=== PATIENT | female | born 1950 | race Caucasian/White ===

== ENCOUNTER → 2017-02-14 | Outpatient (CLI) | payer MEDICARE, OTHER | LOC: COL.RAD 08:15 | DX: S46.812A Strain of other muscles, fascia and tendons at shoulder and upper arm level, left arm, initial encounter (principal); M75.82 Other shoulder lesions, left shoulder; M21.822 Other specified acquired deformities of left upper arm; M75.22 Bicipital tendinitis, left shoulder ==

== ENCOUNTER 2017-07-06 21:06 | Observation (INO) | payer MEDICARE, OTHER ==
[~2017-07-06] VITALS: Ht 154.9 cm; Wt 70.4 kg
[2017-07-06] MEDS ORDERED: TYLENOL W/COD1 UDTAB PO (21:34)
[2017-07-06] MEDS ORDERED: OXAYDO7.5 MG PO (21:35)
[2017-07-06 22:34] LABS: BASO % 0.3 % (0.0-2.0); EOS # 0.1 (0.0-0.7); EOS % 0.5 % (0-4.0); GRAN # 7.1 (1.4-6.5); GRAN % 68.6 % (42.2-75.2); HEMATOCRIT 41.5 % (37.0-47.0); HEMOGLOBIN 13.5 g/dl (12.5-16.0); LYMPH # 2.6 (1.2-3.4); LYMPH % 24.9 % (20.0-51.0); MEAN CELL VOLUME 95 fl (80.0-100.0); MEAN CORPUSCULAR HEMOGLOBIN 31 pg (27.0-31.0); MEAN CORPUSCULAR HGB CONC 33 g/dl (33.0-37.0); MEAN PLATELET VOLUME 10.3 fl (7.4-10.4); MONO # 0.6 (0.1-0.6); MONO % 5.4 % (1.7-9.3); PLATELET COUNT 213 K/mm3 (130-400); RED BLOOD COUNT 4.35 M/mm3 (4.10-5.30); REDCELL DISTRIBUTION WIDTH-CV 12.5 % (11.5-14.5)
[2017-07-06 22:40] VITALS: BP 146/86; PULSE 75
[2017-07-06 22:41] LABS: PROTHROMBIN TIME 11.3 SECONDS (9.7-12.8)
[2017-07-06 22:46] LABS: ALANINE AMINOTRANSFERASE 27 U/L (9-52); ALBUMIN 4.2 gm/dL (3.5-5.0); ALKALINE PHOSPHATASE 93 U/L (50-136); ANION GAP 9 mmol/L (7-16); AST,SGOT 21 U/L (15-37); BILIRUBIN,TOTAL 0.5 mg/dL (0.0-1.0); BLOOD UREA NITROGEN 22 mg/dL (7-17); CALCIUM 8.9 mg/dL (8.4-10.2); CARBON DIOXIDE 26 mmol/L (22-30); CHLORIDE 105 mmol/L (98-107); CREATININE, serum 0.81 mg/dL (0.52-1.25); D-DIMER < 200.00 ng/mLDDu (200-230); GLUCOSE 128 mg/dL (74-106); POTASSIUM 3.8 mmol/L (3.4-5.0); SODIUM 140 mmol/L (137-145); TOTAL PROTEIN 7.1 gm/dL (6.4-8.2)
[2017-07-06 22:57] LABS: TROPONIN-I < 0.012 ng/mL (0.000-0.034)
[2017-07-07 02:46] LABS: COLLECTION METHOD CLEAN CATCH
[2017-07-07 02:52] LABS: CHOLESTEROL RISK RATIO 2.8
[2017-07-07 03:09] LABS: MUCOUS Present /lpf; PH 7 (5-8); SQUAMOUS EPITHELIAL 0-2 /hpf; URINE APPEARANCE Hazy; URINE BACTERIA Rare /hpf; URINE BILIRUBIN Negative (NEGATIVE); URINE BLOOD Negative (NEGATIVE); URINE COLOR Yellow; URINE GLUCOSE Negative (NEGATIVE); URINE KETONE Negative (NEGATIVE); URINE LEUKOCYTE ESTERASE Negative (NEGATIVE); URINE NITRATE Negative (NEGATIVE); URINE PROTEIN(semi-quant) Negative (NEGATIVE); URINE RBC 0-2 /hpf
[2017-07-07 03:23] LABS: TSH w REFLEX 0.818 uIU/mL (0.465-4.680)
[2017-07-07] MEDS ORDERED: TYLENOL W/COD1 UDTAB PO (03:43)
[2017-07-07 04:18] VITALS: BP 139/76; PULSE 65; TEMP 97.4
[2017-07-07 06:36] VITALS: BP 139/78; PULSE 70; TEMP 97.4
[2017-07-07 06:36] LABS: BASO % 0.3 % (0.0-2.0); EOS % 0.5 % (0-4.0); GRAN # 3.1 (1.4-6.5); GRAN % 53.2 % (42.2-75.2); HEMATOCRIT 38.8 % (37.0-47.0); HEMOGLOBIN 12.7 g/dl (12.5-16.0); LYMPH # 2.2 (1.2-3.4); LYMPH % 37.9 % (20.0-51.0); MEAN CELL VOLUME 94 fl (80.0-100.0); MEAN CORPUSCULAR HEMOGLOBIN 31 pg (27.0-31.0); MEAN CORPUSCULAR HGB CONC 33 g/dl (33.0-37.0); MEAN PLATELET VOLUME 10.7 fl (7.4-10.4); MONO # 0.5 (0.1-0.6); MONO % 7.9 % (1.7-9.3); PLATELET COUNT 200 K/mm3 (130-400); RED BLOOD COUNT 4.14 M/mm3 (4.10-5.30); REDCELL DISTRIBUTION WIDTH-CV 12.5 % (11.5-14.5)
[2017-07-07 06:48] LABS: CALCIUM 8.8 mg/dL (8.4-10.2); CREATININE, serum 0.6 mg/dL (0.52-1.25); POTASSIUM 3.6 mmol/L (3.4-5.0)
[2017-07-07 08:21] VITALS: BP 126/42; BP 142/85; PULSE 120; PULSE 70; PULSE 76; TEMP 97.6; TEMP 97.9
[2017-07-07 11:22] VITALS: BP 164/84; PULSE 74; TEMP 98.1
[2017-07-07 16:00] VITALS: BP 162/89; PULSE 72; TEMP 98.5
[2017-07-07 16:38] LABS: RHEUMATOID FACTOR-SCREEN <15 IU/mL (0-29)
[2017-07-07 20:02] VITALS: BP 144/68; PULSE 78; TEMP 97.4
[2017-07-08 00:18] VITALS: BP 143/77; PULSE 81; TEMP 98.2
[2017-07-08 00:27] LABS: RPR (VDRL) Non-reactive (())
[2017-07-08 04:03] VITALS: BP 124/80; PULSE 69; TEMP 98
[2017-07-08 06:51] LABS: BASO % 0.3 % (0.0-2.0); EOS # 0.1 (0.0-0.7); EOS % 1.2 % (0-4.0); GRAN # 2.6 (1.4-6.5); GRAN % 43.8 % (42.2-75.2); HEMATOCRIT 40.9 % (37.0-47.0); HEMOGLOBIN 13.5 g/dl (12.5-16.0); LYMPH # 2.7 (1.2-3.4); LYMPH % 45.6 % (20.0-51.0); MEAN CELL VOLUME 95 fl (80.0-100.0); MEAN CORPUSCULAR HEMOGLOBIN 31 pg (27.0-31.0); MEAN CORPUSCULAR HGB CONC 33 g/dl (33.0-37.0); MEAN PLATELET VOLUME 10.6 fl (7.4-10.4); MONO # 0.5 (0.1-0.6); MONO % 8.9 % (1.7-9.3); PLATELET COUNT 198 K/mm3 (130-400); RED BLOOD COUNT 4.31 M/mm3 (4.10-5.30); REDCELL DISTRIBUTION WIDTH-CV 12.5 % (11.5-14.5)
[2017-07-08 07:11] LABS: CALCIUM 8.4 mg/dL (8.4-10.2); CREATININE, serum 0.67 mg/dL (0.52-1.25); POTASSIUM 3.9 mmol/L (3.4-5.0)
[2017-07-08 07:46] VITALS: BP 143/79; PULSE 77; TEMP 97.5
[2017-07-08 15:45] VITALS: BP 142/70; PULSE 83; TEMP 98.7
[2017-07-08] MEDS ORDERED: ZOFRAN ODT4 MG PO (15:58)
[2017-07-08] MEDS ORDERED: ZESTRIL 10MG10 MG PO (15:59)
[2017-07-08] MEDS ORDERED: ANTIVERT 25MG25 MG PO (16:00)
== END 2017-07-08 17:21 | disposition home or self-care (01) ==
LOC: COL.ER 21:06 → MEDICAL 07-07 01:42
PROVIDERS: Emergency Medicine; Nurse Practitioner Family; Physician Assistant
DX: R42 Dizziness and giddiness (principal); I10 Essential (primary) hypertension; H61.20 Impacted cerumen, unspecified ear; Z90.710 Acquired absence of both cervix and uterus; Z88.0 Allergy status to penicillin; Z82.49 Family history of ischemic heart disease and other diseases of the circulatory system
CPT/HCPCS: 99222-AI; 99239; A9585; G0378; G8978-GP; G8979-GP; G8987-GO; G8988-GO; J2060; J2765; J7030; J7040

== ENCOUNTER 2017-12-26 11:15 | Observation (INO) | payer MEDICARE, OTHER ==
[~2017-12-26] VITALS: Ht 154.9 cm; Wt 72.0 kg
[~2017-12-26 11:15] MED LIST: ANTIVERT 25MG25 MG PO; OXAYDO7.5 MG PO; TYLENOL W/COD1 UDTAB PO; ZESTRIL 10MG10 MG PO; ZOFRAN ODT4 MG PO
[2017-12-26 11:59] LABS: ALBUMIN 3.9 gm/dL (3.5-5.0); BILIRUBIN,TOTAL 0.6 mg/dL (0.0-1.0); CALCIUM 9.3 mg/dL (8.4-10.2); CREATININE, serum 0.6 mg/dL (0.52-1.25); POTASSIUM 3.9 mmol/L (3.4-5.0)
[2017-12-26 12:01] LABS: BASO % 0.3 % (0.0-2.0); EOS % 0.3 % (0-4.0); HEMATOCRIT 38.8 % (37.0-47.0); LYMPH # 1.5 (1.2-3.4); LYMPH % 24.9 % (20.0-51.0); MEAN CELL VOLUME 94 fl (80.0-100.0); MEAN CORPUSCULAR HEMOGLOBIN 31 pg (27.0-31.0); MEAN CORPUSCULAR HGB CONC 34 g/dl (33.0-37.0); MONO # 0.3 (0.1-0.6); MONO % 5.3 % (1.7-9.3); PLATELET COUNT 235 K/mm3 (130-400); RED BLOOD COUNT 4.15 M/mm3 (4.10-5.30); REDCELL DISTRIBUTION WIDTH-CV 12.4 % (11.5-14.5)
[2017-12-26 16:59] VITALS: BP 111/71; PULSE 82; TEMP 98.2
[2017-12-26 19:02] VITALS: BP 111/56; PULSE 86; TEMP 98.6
[2017-12-26 23:17] VITALS: BP 134/64; PULSE 76; TEMP 98
[2017-12-27 04:00] VITALS: BP 131/69; PULSE 75; TEMP 98
[2017-12-27 08:15] VITALS: BP 149/74; PULSE 77; TEMP 98.3
[2017-12-27] MEDS ORDERED: ZOFRAN 4MG T4 MG/TAB PO (11:32)
[2017-12-27] MEDS ORDERED: VALIUM 5MG T5 MG/TAB PO (11:33)
[2017-12-27 11:36] VITALS: BP 136/74; PULSE 75; TEMP 98.5
== END 2017-12-27 14:22 | disposition home or self-care (01) ==
LOC: COL.ER 11:15 → SURG 14:15
PROVIDERS: Emergency Medicine
DX: R42 Dizziness and giddiness (principal); R09.81 Nasal congestion; R11.0 Nausea; I10 Essential (primary) hypertension; Z90.710 Acquired absence of both cervix and uterus; Z88.0 Allergy status to penicillin; Z82.49 Family history of ischemic heart disease and other diseases of the circulatory system
CPT/HCPCS: G0378; G8978-GP; G8979-GP; J1650; J2060; J2550; J7030

== ENCOUNTER 2019-01-25 17:13 | Emergency (ER) | payer MEDICARE, OTHER ==
[~2019-01-25] VITALS: Ht 154.9 cm; Wt 65.5 kg
[~2019-01-25 17:13] MED LIST changes: +VALIUM 5MG T5 MG/TAB PO; +ZOFRAN 4MG T4 MG/TAB PO
[2019-01-25 17:53] LABS: BASO % 0.3 % (0.0-2.0); EOS % 0.7 % (0-4.0); GRAN # 3.6 (1.4-6.5); GRAN % 58.5 % (42.2-75.2); HEMATOCRIT 38.9 % (37.0-47.0); HEMOGLOBIN 12.8 g/dl (12.5-16.0); LYMPH % 32.9 % (20.0-51.0); MEAN CELL VOLUME 94 fl (80.0-100.0); MEAN CORPUSCULAR HEMOGLOBIN 31 pg (27.0-31.0); MEAN CORPUSCULAR HGB CONC 33 g/dl (33.0-37.0); MEAN PLATELET VOLUME 9.8 fl (7.4-10.4); MONO # 0.5 (0.1-0.6); MONO % 7.4 % (1.7-9.3); PLATELET COUNT 235 K/mm3 (130-400); RED BLOOD COUNT 4.13 M/mm3 (4.10-5.30); REDCELL DISTRIBUTION WIDTH-CV 12.5 % (11.5-14.5)
[2019-01-25 18:02] LABS: ALBUMIN 3.9 gm/dL (3.5-5.0); BILIRUBIN,TOTAL 0.8 mg/dL (0.0-1.0); CALCIUM 9.4 mg/dL (8.4-10.2); CREATININE, serum 0.64 (0.52-1.25); POTASSIUM 4.4 mmol/L (3.4-5.0); TOTAL PROTEIN 6.8 gm/dL (6.4-8.2)
[2019-01-25] MEDS ORDERED: ANTIVERT 25MG25 MG PO (19:12)
[2019-01-25 19:23] VITALS: BP 136/82; PULSE 60; TEMP 98.7
== END 2019-01-25 19:42 | disposition home or self-care (01) ==
LOC: COL.ER 17:13
PROVIDERS: Emergency Medicine
DX: R42 Dizziness and giddiness (principal); I10 Essential (primary) hypertension
CPT/HCPCS: J2405; J3010; J7030

== ENCOUNTER 2019-04-01 08:16 | Emergency (ER) | payer MEDICARE, OTHER ==
[~2019-04-01] VITALS: Ht 154.9 cm; Wt 68.2 kg
[2019-04-01 08:20] VITALS: BP 125/63; TEMP 98.6
[2019-04-01] MEDS ORDERED: MOBIC 7.5MG7.5 MG PO (09:58)
[2019-04-01 10:35] VITALS: PULSE 75
== END 2019-04-01 10:32 | disposition home or self-care (01) ==
LOC: COL.ER 08:16
DX: M70.72 Other bursitis of hip, left hip (principal); I10 Essential (primary) hypertension; Z90.49 Acquired absence of other specified parts of digestive tract; Z98.890 Other specified postprocedural states
CPT/HCPCS: J1885

== ENCOUNTER → 2019-12-10 | Outpatient (CLI) | payer MEDICARE, OTHER ==
[~2019-12-10] MED LIST changes: +MOBIC 7.5MG7.5 MG PO
== END ==
LOC: MHCPAIN 14:29
DX: M47.817 Spondylosis without myelopathy or radiculopathy, lumbosacral region (principal); M54.5 Low back pain; M53.3 Sacrococcygeal disorders, not elsewhere classified; G89.29 Other chronic pain; M54.16 Radiculopathy, lumbar region
CPT/HCPCS: G0463

== ENCOUNTER → 2019-12-17 | Outpatient (CLI) | payer MEDICARE, OTHER | LOC: MHCPAIN 13:01 | DX: M47.817 Spondylosis without myelopathy or radiculopathy, lumbosacral region (principal); M54.16 Radiculopathy, lumbar region | CPT/HCPCS: J1100; Q9967 ==

== ENCOUNTER → 2020-01-01 | Outpatient (CLI) | payer MEDICARE, OTHER | LOC: MHCPAIN 15:46 | DX: M47.817 Spondylosis without myelopathy or radiculopathy, lumbosacral region (principal); M54.5 Low back pain; M53.3 Sacrococcygeal disorders, not elsewhere classified; G89.29 Other chronic pain | CPT/HCPCS: G0463 ==

== ENCOUNTER → 2020-01-10 | Outpatient (CLI) | payer MEDICARE, OTHER | LOC: MHCPAIN 12:52 | DX: M47.817 Spondylosis without myelopathy or radiculopathy, lumbosacral region (principal); M54.16 Radiculopathy, lumbar region | CPT/HCPCS: J1100; Q9967 ==

== ENCOUNTER → 2020-01-30 | Outpatient (CLI) | payer MEDICARE, OTHER | LOC: MHCPAIN 11:20 | DX: M47.817 Spondylosis without myelopathy or radiculopathy, lumbosacral region (principal); M54.5 Low back pain; M53.3 Sacrococcygeal disorders, not elsewhere classified; G89.29 Other chronic pain; M54.16 Radiculopathy, lumbar region | CPT/HCPCS: G0463 ==

== ENCOUNTER 2020-01-31 14:45 | Outpatient (RCR) | payer MEDICARE, OTHER | END 2020-03-11 | disposition home or self-care (01) | LOC: MKS.ESL.PT | DX: M48.062 Spinal stenosis, lumbar region with neurogenic claudication (principal) ==

== ENCOUNTER → 2020-03-06 | Outpatient (CLI) | payer MEDICARE, OTHER | LOC: MHCPAIN 02-14 17:59 | DX: M47.817 Spondylosis without myelopathy or radiculopathy, lumbosacral region (principal); M54.16 Radiculopathy, lumbar region | CPT/HCPCS: J1100; Q9967 ==

== ENCOUNTER → 2020-03-19 | Outpatient (CLI) | payer MEDICARE, OTHER | LOC: MHCPAIN 15:41 | DX: M47.817 Spondylosis without myelopathy or radiculopathy, lumbosacral region (principal); M54.5 Low back pain; G89.29 Other chronic pain; M48.061 Spinal stenosis, lumbar region without neurogenic claudication; M54.16 Radiculopathy, lumbar region | CPT/HCPCS: G0463 ==

== ENCOUNTER → 2020-04-03 | Outpatient (CLI) | payer MEDICARE, OTHER | LOC: MHCPAIN 13:41 | DX: M47.818 Spondylosis without myelopathy or radiculopathy, sacral and sacrococcygeal region (principal); M53.3 Sacrococcygeal disorders, not elsewhere classified | CPT/HCPCS: G0260; J1040; Q9967 ==

== ENCOUNTER → 2020-07-02 | Outpatient (CLI) | payer MEDICARE, OTHER | LOC: MHCPAIN 15:08 | DX: M25.552 Pain in left hip (principal); M70.62 Trochanteric bursitis, left hip; M53.3 Sacrococcygeal disorders, not elsewhere classified; G89.29 Other chronic pain | CPT/HCPCS: G0463 ==

== ENCOUNTER → 2020-07-09 | Outpatient (CLI) | payer MEDICARE, OTHER | LOC: MHCPAIN 13:17 | DX: M25.552 Pain in left hip (principal); M70.62 Trochanteric bursitis, left hip | CPT/HCPCS: J1040 ==

== ENCOUNTER → 2020-07-30 | Outpatient (CLI) | payer MEDICARE, OTHER | LOC: MHCPAIN 15:23 | DX: M47.816 Spondylosis without myelopathy or radiculopathy, lumbar region (principal); M53.3 Sacrococcygeal disorders, not elsewhere classified; M70.62 Trochanteric bursitis, left hip; G89.29 Other chronic pain | CPT/HCPCS: G0463 ==

== ENCOUNTER 2020-08-18 15:30 | Outpatient (RCR) | payer MEDICARE, OTHER | END 2020-10-02 | disposition home or self-care (01) | LOC: MKS.ESL.PT | DX: M70.61 Trochanteric bursitis, right hip (principal); M70.62 Trochanteric bursitis, left hip ==

== ENCOUNTER → 2020-10-02 | Outpatient (CLI) | payer MEDICARE, OTHER | LOC: MHCPAIN 08-11 11:23 | DX: M47.818 Spondylosis without myelopathy or radiculopathy, sacral and sacrococcygeal region (principal); M53.3 Sacrococcygeal disorders, not elsewhere classified | CPT/HCPCS: G0260; G0463; J1040; Q9967 ==

== ENCOUNTER 2020-12-15 15:30 | Outpatient (RCR) | payer MEDICARE, OTHER | END 2021-01-18 | disposition home or self-care (01) | LOC: MKS.ESL.PT | DX: M70.71 Other bursitis of hip, right hip (principal); M70.72 Other bursitis of hip, left hip ==

== ENCOUNTER → 2021-02-03 | Outpatient (CLI) | payer MEDICARE, OTHER | LOC: MHCPAIN 15:16 | DX: M47.896 Other spondylosis, lumbar region (principal); M54.50 Low back pain, unspecified; M53.3 Sacrococcygeal disorders, not elsewhere classified | CPT/HCPCS: G0463 ==

== ENCOUNTER 2021-05-04 09:20 | Emergency (ER) | payer MEDICARE, OTHER ==
[~2021-05-04] VITALS: Ht 154.9 cm; Wt 65.9 kg
[2021-05-04 09:31] VITALS: TEMP 98.2
[2021-05-04 10:24] LABS: BASO % 0.2 % (0.0-2.0); EOS % 0.7 % (0.0-4.0); GRAN # 3.2 K/mm3 (1.4-6.5); GRAN % 55.8 % (42.2-75.2); LYMPH # 1.9 K/mm3 (1.2-3.4); LYMPH % 33.8 % (20.0-51.0); MEAN CELL VOLUME 92 fl (80.0-100.0); MEAN CORPUSCULAR HEMOGLOBIN 32 pg (27-31); MEAN CORPUSCULAR HGB CONC 34 g/dl (33.0-37.0); MEAN PLATELET VOLUME 9.9 fl (7.4-10.4); MONO # 0.5 K/mm3 (0.1-0.6); MONO % 9.3 % (1.7-9.3); PLATELET COUNT 264 K/mm3 (130-400); RED BLOOD COUNT 3.81 M/mm3 (4.10-5.30); REDCELL DISTRIBUTION WIDTH-CV 12.1 % (11.5-14.5)
[2021-05-04 10:41] LABS: ALANINE AMINOTRANSFERASE 637 U/L (0-55); ALBUMIN 3.6 gm/dL (3.4-4.8); ALKALINE PHOSPHATASE 161 U/L (40-150); ANION GAP 10 mmol/L (7-16); AST,SGOT 836 U/L (5-34); BILIRUBIN,TOTAL 2.8 mg/dL (0.2-1.2); BLOOD UREA NITROGEN 21 mg/dL (10-20); CALCIUM 9.4 mg/dL (8.4-10.2); CARBON DIOXIDE 22 mmol/L (23-31); CHLORIDE 105 mmol/L (98-107); CREATININE, serum 0.72 mg/dL (0.57-1.11); GLUCOSE 87 mg/dL (70-99); LIPASE 35 U/L (8-78); POTASSIUM 3.9 mmol/L (3.5-4.5); SODIUM 137 mmol/L (136-145); TOTAL PROTEIN 6.6 gm/dL (6.2-8.1)
[2021-05-04 10:50] LABS: TROPONIN-I < 0.010 ng/mL (0.00-0.033)
[2021-05-04 11:33] LABS: COLLECTION METHOD CLEAN CATCH
[2021-05-04 11:40] LABS: MUCOUS Present (NOT PRESENT); PH 6 (5-8); SQUAMOUS EPITHELIAL None Seen /hpf (0-10); URINE APPEARANCE Hazy (CLEAR/HAZY); URINE BACTERIA Rare /hpf (NONE SEEN); URINE BILIRUBIN Negative (NEGATIVE); URINE BLOOD Negative (NEGATIVE); URINE COLOR Amber (YELLOW); URINE GLUCOSE Negative (NEGATIVE); URINE KETONE Negative (NEGATIVE); URINE LEUKOCYTE ESTERASE Negative (NEGATIVE); URINE NITRATE Negative (NEGATIVE); URINE PROTEIN(semi-quant) Negative (NEGATIVE); URINE RBC 0-2 /hpf (0-2); URINE UROBILINOGEN >=4.0 (NEGATIVE)
[2021-05-04 12:58] VITALS: BP 126/85; PULSE 80
== END 2021-05-04 12:58 | disposition home or self-care (01) ==
LOC: COL.ER 09:20
PROVIDERS: Physician Assistant
DX: R74.01 Elevation of levels of liver transaminase levels (principal); R06.02 Shortness of breath; R79.1 Abnormal coagulation profile; I10 Essential (primary) hypertension; Z20.822 Contact with and (suspected) exposure to COVID-19; Z79.899 Other long term (current) drug therapy
CPT/HCPCS: J7030; Q9967

== ENCOUNTER 2022-02-18 09:52 | Emergency (ER) | payer MEDICARE, OTHER ==
[~2022-02-18] VITALS: Ht 154.9 cm; Wt 65.9 kg
[2022-02-18 10:01] VITALS: TEMP 98.2
[2022-02-18 11:10] LABS: STREP SCREEN NEGATIVE
[2022-02-18 13:00] VITALS: BP 115/80
[2022-02-18] MEDS ORDERED: ZITHROMAX Z PA250 MG PO (14:05)
[2022-02-18 14:22] VITALS: PULSE 978
== END 2022-02-18 14:23 | disposition home or self-care (01) ==
LOC: COL.ER 09:52
PROVIDERS: Personal Emergency Response Attendant
DX: J20.9 Acute bronchitis, unspecified (principal); Z20.822 Contact with and (suspected) exposure to COVID-19; Z88.0 Allergy status to penicillin

== ENCOUNTER 2022-02-24 08:32 | Emergency (ER) | payer MEDICARE, OTHER ==
[~2022-02-24] VITALS: Ht 154.9 cm; Wt 65.9 kg
[~2022-02-24 08:32] MED LIST changes: +ZITHROMAX Z PA250 MG PO
[2022-02-24 08:38] VITALS: TEMP 97.6
[2022-02-24] MEDS ORDERED: DOXYCYCLINE HY100 MG PO (09:09)
[2022-02-24 09:17] VITALS: BP 103/72; PULSE 74
[2022-03-01] MEDS ORDERED: PROMETHAZINE H118 ML PO ×5 (12:58→17:41)
== END 2022-02-24 09:17 | disposition home or self-care (01) ==
LOC: COL.ER 08:32
DX: J32.9 Chronic sinusitis, unspecified (principal); Z88.0 Allergy status to penicillin

== ENCOUNTER 2023-02-18 16:29 | Emergency (ER) | payer MEDICARE, OTHER ==
[~2023-02-18] VITALS: Ht 154.9 cm; Wt 65.0 kg
[~2023-02-18 16:29] MED LIST changes: +DOXYCYCLINE HY100 MG PO; +PROMETHAZINE H118 ML PO
[2023-02-18 16:44] VITALS: TEMP 98.3
[2023-02-18 18:40] VITALS: BP 116/72; PULSE 92
== END 2023-02-18 18:45 | disposition home or self-care (01) ==
LOC: COL.ER 16:29
DX: S00.11XA Contusion of right eyelid and periocular area, initial encounter (principal); S00.31XA Abrasion of nose, initial encounter; W01.198A Fall on same level from slipping, tripping and stumbling with subsequent striking against other object, initial encounter; Y93.01 Activity, walking, marching and hiking; Y92.009 Unspecified place in unspecified non-institutional (private) residence as the place of occurrence of the external cause

== ENCOUNTER → 2023-10-19 | Outpatient (CLI) | payer MEDICARE, OTHER | LOC: MC.RAD 14:15 | DX: Z12.31 Encounter for screening mammogram for malignant neoplasm of breast (principal) ==